=== PATIENT | female | born 1940 | race Caucasian/White ===

== ENCOUNTER 2018-05-21 17:34 | Emergency (ER) | payer MEDICARE, OTHER ==
[2018-05-21 18:26] LABS: ABS Basophils 0 10^3/ul (0-0.2); ABS Eosinophils 0.1 10^3/ul (0-0.6); ABS Lymphocytes 2.1 10^3/ul (1.0-4.8); ABS Monocytes 0.4 10^3/ul (0-0.8); ABS Neutrophils 3.5 10^3/ul (1.5-7.7); ABS Nucleated RBC 0 10^3/ul; Eosinophil % 2.2 % (0-6); Hematocrit 37 % (35-47); Hemoglobin 12.8 g/dl (12.0-16.0); Lymphocyte % 33.8 % (25-47); Mean Corpuscular HGB Conc 35 g/dl (31-36); Mean Corpuscular Hemoglobin 32 pg (27-31); Mean Corpuscular Volume 90 fL (80-97); Nucleated Red Blood Cells % 0.1; Platelet Count 243 10^3/ul (150-450); Red Blood Count 4.07 10^6/ul (4.00-5.40); Red Cell Distribution Width 13 % (10.5-15); White Blood Count 6.2 10^3/ul (3.5-10.8)
[2018-05-21 18:46] LABS: EGFR Non-African American 84.1 (>60)
[2018-05-21 19:09] VITALS: BP 123/79
--- NOTE | 2018-05-21 19:14 | ED ---
Abdominal Pain/Female - HPI Summary HPI Summary: Complains of right inguinal pain radiating down posterior right leg 1 hour. Pain resolved prior to arrival in ED. Patient was sent to ED by PCP for evaluation of right lower quadrant pain. Patient states she has had this pain 10 times over the past 2 years. Patient was evaluated 09/15/2015 for same, with negative CT abdomen and pelvis, negative hip and pelvis x-ray. Patient denies any new associated symptoms other than pain lasted a little longer today. Denies fever, cough, sore throat, CP, SOB, N/V/D, change in urinary BM. Medical history is DM. Abdominal/pelvic surgical history includes total hysterectomy. No anti-coag. Daily aspirin. - History of Current Complaint Chief Complaint: EDAbdPain Stated Complaint: RT FLANK PAIN Time Seen by Provider: 05/21/18 18:08 Hx Obtained From: Patient Onset/Duration: Sudden Onset Timing: Minutes Severity Initially: Severe Severity Currently: None Pain Intensity: 3 Pain Scale Used: 0-10 Numeric Location: Discrete At: RLQ Radiates: Yes Radiates to: Other Character: Sharp Aggravating Factor(s): Nothing Alleviating Factor(s): Nothing Associated Signs and Symptoms: Positive: Negative Allergies/Adverse Reactions: Allergies Allergy/AdvReac Type Severity Reaction Status Date / Time No Known Allergies Allergy Verified 05/21/18 18:00 Home Medications: Home Medications Cholecalciferol TAB* [Vitamin D TAB*] 400 unit PO DAILY 05/21/18 [History Confirmed 05/21/18] Cyanocobalamin TAB* [Vitamin B12 TAB*] 500 mcg PO DAILY 05/21/18 [History Confirmed 05/21/18] Insulin GLARGINE(*) [Lantus(*)] 55 units SUBCUT DAILY 05/21/18 [History Confirmed 05/21/18] Losartan TAB* [Cozaar TAB*] 100 mg PO DAILY 05/21/18 [History Confirmed 05/21/18 ] Montelukast Sodium TAB* [Singulair TAB*] 10 mg PO DAILY 05/21/18 [History Confirmed 05/21/18] Mv-Min/Iron/Folic/Calcium/Vitk [One-A-Day Women's Tablet] 1 tab PO DAILY [History Confirmed 05/21/18] [place]-3 Fatty Acids (Nf) [Fish Oil (NF)] 1,000 mg PO DAILY 05/21/18 [History Confirmed 05/21/18] Simvastatin (NF) [Zocor (NF)] 40 mg PO DAILY 05/21/18 [History Confirmed ] metFORMIN* [Glucophage 500 MG TAB *] 1,000 mg PO BID 05/21/18 [History Confirmed 05/21/18] PMH/Surg Hx/FS Hx/Imm Hx Endocrine/Hematology History: Denies: Hx Anticoagulant Therapy History: Denies: Hx Dialysis Musculoskeletal History: Denies: Hx Osteoporosis Neurological History: Denies: Hx CVA - Cancer History Hx Chemotherapy: No Hx Radiation Therapy: No - Surgical History Surgery Procedure, Year, and Place: back surgury 1988 =fusion Infectious Disease History: No Infectious Disease History: Denies: Traveled Outside the [place] in Last 30 Days - Social History Alcohol Use: Rare Substance Use Type: Reports: None Smoking Status (MU): Never Smoked Tobacco Review of Systems Constitutional: Negative Eyes: Negative ENT: Negative Cardiovascular: Negative Respiratory: Negative Positive: Abdominal Pain Genitourinary: Negative Musculoskeletal: Negative Skin: Negative Neurological: Negative Psychological: Normal All Other Systems Reviewed And Are Negative: Yes Physical Exam - Summary Physical Exam Summary: Patient pain resolved by time of exam. No pain with palpation of any quadrant of abdomen. Patient moves bilateral lower extremities freely, flexes and extends his hip without any pain. No pain with palpation of right inguinal area. Triage Information Reviewed: Yes Vital Signs On Initial Exam: Initial Vitals Temp Pulse Resp BP Pulse Ox 98.3 F 70 18 156/68 95 05/21/18 17:55 05/21/18 17:55 05/21/18 17:55 05/21/18 17:55 05/21/18 17:55 Vital Signs Reviewed: Yes Appearance: Positive: Well-Appearing Skin: Positive: Warm Head/Face: Positive: Normal Head/Face Inspection Eyes: Positive: Normal Neck: Positive: Supple Respiratory/Lung Sounds: Positive: Clear to Auscultation Cardiovascular: Positive: Normal Abdomen Description: Positive: Nontender Musculoskeletal: Positive: Normal Neurological: Positive: Normal Psychiatric: Positive: Normal AVPU Assessment: Alert - Dotty Coma Scale Best Eye Response: 4 - Spontaneous Best Motor Response: 6 - Obeys Commands Best Verbal Response: 5 - Oriented Coma Scale Total: 15 Diagnostics - Vital Signs Vital Signs Temp Pulse Resp BP Pulse Ox 07/03/18 19:01 71 20 92 05/21/18 19:00 70 23 123/79 93 05/21/18 18:30 66 15 139/75 95 05/21/18 17:55 98.3 F 70 18 156/68 95 - Laboratory Lab Results: Lab Results 05/21/18 05/21/18 05/21/18 Range/Units 18:17 18:17 18:17 WBC 6.2 (3.5-10.8) 10^3/ul RBC 4.07 (4.00-5.40) 10^6/ul Hgb 12.8 (12.0-16.0) g/dl Hct 37 (35-47) % MCV 90 (80-97) fL MCH 32 H (27-31) pg MCHC 35 (31-36) g/dl RDW 13 (10.5-15) % Plt Count 243 (150-450) 10^3/ul MPV 7.0 L (7.4-10.4) um3 Neut % (Auto) 57.2 (38-83) % Lymph % (Auto) 33.8 (25-47) % [place] % (Auto) 6.0 (0-7) % Eos % (Auto) 2.2 (0-6) % Baso % (Auto) 0.8 (0-2) % Absolute Neuts (auto) 3.5 (1.5-7.7) 10^3/ul Absolute Lymphs (auto) 2.1 (1.0-4.8) 10^3/ul Absolute Monos (auto) 0.4 (0-0.8) 10^3/ul Absolute Eos (auto) 0.1 (0-0.6) 10^3/ul Absolute Basos (auto) 0 (0-0.2) 10^3/ul Absolute Nucleated RBC 0 10^3/ul Nucleated RBC % 0.1 Sodium 136 (135-145) mmol/L Potassium 4.1 (3.5-5.0) mmol/L Chloride 103 (101-111) mmol/L Carbon Dioxide 21 L (22-32) mmol/L Anion Gap 12 H (2-11) mmol/L BUN 18 (6-24) mg/dL Creatinine 0.68 (0.51-0.95) mg/dL Est GFR ( Amer) 101.8 (>60) Est GFR (Non-Af Amer) 84.1 (>60) BUN/Creatinine Ratio 26.5 H (8-20) Glucose 200 H (70-100) mg/dL Lactic Acid 1.5 (0.5-2.0) mmol/L Calcium 10.1 (8.6-10.3) mg/dL Total Bilirubin 0.90 (0.2-1.0) mg/dL AST 28 (13-39) U/L ALT 27 (7-52) U/L Alkaline Phosphatase 61 (34-104) U/L C-Reactive Protein 3.05 (<8.01) mg/L Total Protein 7.8 (6.4-8.9) g/dL Albumin 4.5 (3.2-5.2) g/dL Globulin 3.3 (2-4) g/dL Albumin/Globulin Ratio 1.4 (1-3) Lipase 25 (11.0-82.0) U/L Result Diagrams: 05/21/18 18:17 05/21/18 18:17 Lab Statement: Any lab studies that have been ordered have been reviewed, and results considered in the medical decision making process. - EKG 1 Cardiac Rate: NL EKG Rhythm: Sinus Rhythm ST Segment: Non-Specific Ectopy: PVCs Abdominal Pain Fem Course/Dx - Course Course Of Treatment: Complains of right inguinal pain radiating down posterior right leg 1 hour. Pain resolved prior to arrival in ED. Patient was sent to ED by PCP for evaluation of right lower quadrant pain. Patient states she has had this pain 10 times over the past 2 years. Patient was evaluated 09/15/2015 for same, with negative CT abdomen and pelvis, negative hip and pelvis x-ray. Patient denies any new associated symptoms other than pain lasted a little longer today. Denies fever, cough, sore throat, CP, SOB, N/V/D, change in urinary BM. Medical history is DM. Abdominal/pelvic surgical history includes total hysterectomy. No anti-coag. Daily aspirin. Patient pain resolved by time of exam. No pain with palpation of any quadrant of abdomen. Patient moves bilateral lower extremities freely, flexes and extends his hip without any pain. No pain with palpation of right inguinal area. Vital signs within normal limits and stable. Labs unremarkable. Discussed patient with Dr. Perez who also felt that imaging was not necessary. Discharge home follow- up with primary care for possible radiculopathy - Diagnoses Provider Diagnoses: Right sided abdominal pain, Leg pain, right Discharge - Sign-Out/Discharge Documenting (check all that apply): Discharge/Admit/Transfer - Discharge Plan Condition: Stable Disposition: HOME Patient Education Materials: Lumbar Radiculopathy (ED) Referrals: Madelaine Zaragoza MD [Primary Care Provider] - Additional Instructions: Follow-up with primary care. Return to the ED for any new or worsening symptoms - Billing Disposition and Condition Condition: STABLE Disposition: Home
== END 2018-05-21 19:34 | disposition home or self-care (01) ==
LOC: ED 17:34
DX: R10.31 Right lower quadrant pain (principal); M79.604 Pain in right leg
CPT/HCPCS: 36415; 80053; 83605; 83690; 85025; 86140; 93005; 99282

== ENCOUNTER 2019-11-25 21:08 | Inpatient (IN) | payer MEDICARE, OTHER ==
--- NOTE | 2019-11-25 21:16 | ED ---
HPI Chest Pain - History of Current Complaint Chief Complaint: EDChestPainROMI Pain Intensity: 5 - Allergy/Home Medications Allergies/Adverse Reactions: Allergies Allergy/AdvReac Type Severity Reaction Status Date / Time amoxicillin Allergy Rash Verified 01/15/19 10:00 PMH/Surg Hx/FS Hx/Imm Hx Endocrine/Hematology History: Reports: Hx Diabetes - MEDICATED Denies: Hx Anticoagulant Therapy Cardiovascular History: Reports: Hx Hypertension - MEDICATED Denies: Hx Pacemaker/ICD History: Denies: Hx Dialysis, Hx Renal Disease Musculoskeletal History: Denies: Hx Osteoporosis Sensory History: Denies: Hx Hearing Aid Neurological History: Denies: Hx CVA Psychiatric History: Denies: Hx Panic Disorder - Cancer History Hx Chemotherapy: No Hx Radiation Therapy: No - Surgical History Surgery Procedure, Year, and Place: back surgury 1988 =fusion. HYSTERECTOMY Infectious Disease History: No Infectious Disease History: Denies: Traveled Outside the [place] in Last 30 Days - Social History Alcohol Use: Rare Substance Use Type: Reports: None Smoking Status (MU): Never Smoked Tobacco Physical Exam Vital Signs On Initial Exam: Initial Vitals Temp Pulse Resp BP Pulse Ox 98.8 F 77 20 170/90 95 11/25/19 21:08 11/25/19 21:08 11/25/19 21:08 11/25/19 21:08 11/25/19 21:08 Diagnostics - Vital Signs Vital Signs Temp Pulse Resp BP Pulse Ox 11/25/19 21:08 98.8 F 77 20 170/90 95 - Laboratory Lab Statement: Any lab studies that have been ordered have been reviewed, and results considered in the medical decision making process. - EKG 2115 Cardiac Rate: NL EKG Rhythm: Sinus Rhythm Summary of EKG Findings: NSR at 74 BPM, P waves, QRS complex, and T waves are within normal limits, T waves and intervals are normal, no ischemic changes. This is a normal EKG. This EKG was reviewed and interpreted by the ED physician. Discharge ED - Discharge Plan Referrals: Madelaine Zaragoza MD [Primary Care Provider] - - Attestation Statements Document Initiated by Scribe: Yes
--- OUTSIDE RECORDS SUMMARY | 2019-11-25 21:16 | XMS REPORT | Continuity of Care Document ---
:1940 External Reference #:[id number] Author Name Madelaine Reed MD Address [address] [place] [id number] Problems Active Problems Provider Date Type 2 diabetes mellitus Onset: 05/30/2006 Pure hypercholesterolemia Onset: 05/30/2006 Benign essential hypertension Madelaine Reed MD Onset: 09/28/2010 Type II diabetes mellitus uncontrolled Madelaine Reed MD Onset: 2011 Type II diabetes mellitus uncontrolled Madelaine Reed MD Onset: 2014 Essential hypertension Madelaine Reed MD Onset: 08/17/2015 Mixed hyperlipidemia Madelaine Reed MD Onset: 09/03/2018 Social History Type Date Description Comments Sex Unknown Tobacco Use Start: Unknown End: Unknown Former Cigarette Smoker Tobacco Use Start: Unknown End: Unknown Patient is a former smoker Smoking Status Reviewed: 07/15/19 Patient is a former smoker Allergies, Adverse Reactions, Alerts Active Allergies Reaction Severity Comments Date Amoxicillin Codeine Medications Active Medications SIG Qnty Indications Ordering Date Provider [facility] [place] for lantus inj QS E11.65 Madelaine Reed 10/27/2019 32G X 4 mm MD [facility] Misc Slow-Mag Madelaine Reed 07/17/2019 71.5-119mg MD [facility] Tablets DR Glucometer dx: DM 2 1units Madelaine Reed 04/15/2019 MD [facility] Lancets Micro Thin for fsbg twice a 100units Madelaine Reed 04/15/2019 33G day MD [facility] Thin 33G [facility] [place] Blood Glucose Test test twice a day 100units E11.65 Madelaine Reed 04/11 MD [facility] Strips Gabapentin take 1-3 30caps M54.31 [facility] 03/04/2019 100mg capsules at M, Capsules bedtime Magnesium Gluconate 1 po qhs 30tabs G47.62 [facility] 03/04/2019 MD [facility] 500mg Tablets Janumet XR Take One Tablet 60tabs E11.65 [facility] 06/18/2018 50-1000mg By Mouth Twice A M, Tablets ER 24HR Day Shingrix 2 shot series 2units Z00.01 [facility] 03/13/2018 50mcg MD [facility] Suspension Rec Montelukast Sodium Take One Tablet 30tabs J30.1 [facility] 2016 10mg By Mouth Every M, Tablets Day Losartan Potassium Take One Tablet 30tabs I10 [facility] 12/19/2016 By Mouth Every M, 100mg Tablets Day Lantus Solostar Inject 50u Units 15units E11.65 Ramone Gonzalez PA 2015 Under The Skin 100Unit/ML Solution Every Day Pen-Inject Vitamin D-3 one qd E55.9 [facility], 02/13/2013 1000Unit Elaine, [employer] Tablets Fish Oil one qd E78.2 [facility], 02/13/2013 1000mg Elaine, [employer] Capsules Simvastatin take one tablet 30tabs E78.2 [facility] 06/24/2012 40mg by mouth at [facility], Tablets bedtime Vitamin B-12 1 po qd D51.9 [facility] 08/11/2009 1000mcg MD [facility] Tablets Claritin 1 po qd prn 90tabs J30.1 [facility] 07/09/2006 10mg Tablets MD [facility] Multivitamins W/ Iron 1 po qd 90tabs [facility] 10/25/2005 MD [facility] Tablets Medications Administered in Office Medication SIG Qnty Indications Ordering Provider Date Phenergan(Promethazine Hci)Up Madelaine Reed MD 05/04/2010 To 50 MG Injection Immunizations CPT Code Status Date Vaccine Lot # [id number] Given 09/01/2019 Influenza Vac, Quadrivalent, Split, 0.5mL Dosage, [id number] Im Use 96411 Given 09/03/2018 Influenza Vac, Quadrivalent, Split, 0.5mL Dosage, [id number] Im Use 14326 Given 07/24/2017 Influenza Vac, Quadrivalent, Split, 0.5mL Dosage, [id number] Im Use 25267 Given 08/16/2016 Influenza Vac, Quadrivalent, Split, 0.5mL Dosage, [id number] Im Use 35017 Given 12/14/2015 Pneumococcal 23 Immunization Adult Or [id number] Immunosuppressed Patient 51878 Given 08/17/2015 Influenza Vac, Quadrivalent, Split, 0.5mL Dosage, [id number] Im Use 04347 Given 11/27/2014 Prevnar 13 Pneumococal Conjugate Vaccine [id number] Q2038 Given 08/18/2014 Fluzone Trivalent Immunization [id number] Q2038 Given 08/12/2013 Fluzone Trivalent Immunization [id number] Q2038 Given 08/16/2012 Fluzone Trivalent Immunization [id number] 98631 Given 07/05/2012 Zoster (Zostavax) [id number] Q2038 Given 09/11/2011 Fluzone Trivalent Immunization [id number] 07867 Given 09/26/2010 Afluria Or Fluvirin Flu Vac Intramuscular [id number] 92238 Given 08/11/2009 Afluria Or Fluvirin Flu Vac Intramuscular [id number] 56904 Given 07/07/2009 Tdap (Adacel) Ages 7 And Above Only [id number] 60602 Given 10/12/2008 Afluria Or Fluvirin Flu Vac Intramuscular [id number] 08919 Given 09/18/2007 Afluria Or Fluvirin Flu Vac Intramuscular 01910 Given 09/18/2007 Afluria Or Fluvirin Flu Vac Intramuscular [id number] 53126 Given 09/19/2006 Afluria Or Fluvirin Flu Vac Intramuscular [id number] 54840 Given 08/23/2005 Afluria Or Fluvirin Flu Vac Intramuscular [id number] 90585 Given 09/14/2004 Afluria Or Fluvirin Flu Vac Intramuscular 63633 Given 09/28/2003 Pneumococcal 23 Immunization Adult Or Immunosuppressed Patient 71840 Given 11/04/2001 Afluria Or Fluvirin Flu Vac Intramuscular Vital Signs Date Vital Result Comment 10/27/2019 1:37pm Body Temperature 98.6 F Weight 160.00 lb Heart Rate 72 /min BP Systolic 136 mmHg BP Diastolic 70 mmHg Height 67 inches 5'7" BMI (Body Mass Index) 25.1 kg/m2 07/15/2019 7:59am Weight 159.00 lb Heart Rate 72 /min BP Systolic 132 mmHg BP Diastolic 60 mmHg Height 67 inches 5'7" BMI (Body Mass Index) 24.9 kg/m2 Results Test Acquired Date Facility Test Result H/L Range Note CBC with Auto Diff-fcmg 10/27/2019 [facility] WBC 7.4 K/uL 4.1-11.0 1 RBC 3.98 M/uL Low 4.00-5.40 2 Hemoglobin 12.8 gm/dL 12.0-16.0 3 Hematocrit 36.5 % 36.0-47.0 4 MCV 91.5 fL 80.0-95.0 5 MCH 32.1 pg High 27.0-32.0 6 MCHC 35.1 g/dL 32.0-36.0 7 RDW 13.3 % 10.5-14.5 8 PLT Count 253 K/ul 150-400 9 MPV 7.4 FL 7.1-10.7 Neutrophil 66.0 % 35.0-75.0 10 Lymphocyte 24.6 % 16.0-52.0 11 Monocyte 7.0 % 0.0-8.0 12 Eosinophil 1.7 % 0.0-5.0 Basophil 0.7 % 0.0-4.0 Abs Neutrophils 4.9 K/uL 1.8-7.7 13 Abs Lymphocytes 1.8 K/uL 1.2-4.8 14 Abs Monocytes 0.5 K/uL 0.0-0.8 15 Abs Eosinophils 0.1 K/uL 0.0-0.5 16 Abs Basophils 0.0 K/uL 0.0-0.2 17 Iron Panel 10/27/2019 [facility] Iron, Total 61 g/dL 50-170 Transferrin 245.0 mg/dL 203.0-362.0 Tibc (calc) 343 g/dL 261-478 % Iron Saturation 17.8 % 13.0-45.0 Hemoglobin A1c 07/15/2019 [facility] Hemoglobin A1c 7.3 % High 4.1-5.9 18 Estimated Average Glucose Calc 163 mg/dL High 71-140 Laboratory test finding 07/15/2019 [facility] Magnesium 1.3 mg/dL Low 1.5- 2.7 Vitamin B12 413 pg/mL 180-914 Vitamin D 25 Hydroxy 42 ng/mL 30-100 19 Basic (BMP) 07/15/2019 [facility] Sodium 142 mmol/L 135-146 20 Potassium 4.2 mmol/L 3.5-5.2 Chloride# 104 mmol/L 97-110 21 Carbon Dioxide 27 mmol/L 24-34 Glucose 99 mg/dL 70-105 BUN 18 mg/dL 6-26 Creatinine 0.7 mg/dL 0.5-1.4 Calcium 9.8 mg/dL 8.5-10.5 22 Female Egfr 84 >60 23 Male Egfr 92 >60 24 Anion Gap 11 mmol/L 5-15 25 Lipid Treatment 07/15/2019 [facility] Cholesterol 249 mg/dL High 50-199 Triglycerides 153 mg/dL 30-200 HDL 40 mg/dL 35-85 26 Chol/ HDL Ratio 6.2 ratio High 3.7-5.6 VLDL 31 mg/dL High 2-29 LDL (Calc) 179 mg/dL High 20-99 27 Alt 24 U/L 3-42 Ast 26 U/L 8-42 1 Updated Reference Range 09/2019 2 Updated Reference Range 09/2019 3 Updated Reference Range 09/2019 4 Updated Reference Range 09/2019 5 Updated Reference Range 09/2019 6 Updated Reference Range 09/2019 7 Updated Reference range 09/2019 8 Updated Reference range 09/2019 9 Updated Reference Range 09/2019 10 Updated Reference Range 09/2019 11 Updated Reference Range 09/2019 12 Updated Reference Range 09/2019 13 Updated Reference Range 09/2019 14 Updated Reference Range 09/2019 15 Updated Reference Range 09/2019 16 Updated Reference Range 09/2019 17 Updated Reference Range 09/2019 18 This sample is drawn by:ESTELLA. 19 Clinical Guidelines for recommended serum 25(OH)Vitamin D Deficient at less than 20 ng/mL Insufficient at 20 to <30 ng/mL Sufficient at 30-100 ng/mL Toxicity at greater than 100 ng/mL 20 Updated reference range on new analyzer 21 Updated reference range on new analyzer 22 Updated reference range 03-19-2019 23 Concerning GFR Guidelines for Americans: Normal function or mild renal disease, if clinically at risk: >/= 60 mL/min Moderately decreased: 30-59 Severely decreased: 15-29 Renal failure: <15 There is reduced accuracy above 60ml/min/1.73 m squared, but the numeric value may be clinically useful in the near 60 range 24 Concerning GFR Guidelines: Normal function or mild renal disease, if clinically at risk: >/= 60 mL/min Moderately decreased: 30-59 Severely decreased: 15-29 Renal failure: <15 There is reduced accuracy above 60ml/min/1.73 m squared, but the numeric value may be clinically useful in the near 60 range Glomerular Filtration Rate (GFR) is estimated based on the CKD-EPI equation, which assumes a steady state for creatinine as recommended by the National Kidney Disease Education Program in conjunction with the National Institutes of Health and the National Kidney Foundation. Clinical conditions in which it may be necessary to measure GFR by using clearance methods include extremes of age and body size, severe malnutrition or obesity, diseases of skeletal muscle, paraplegia or quadriplegia, vegetarian diet, rapidly changing kidney function, and calculation of the dose of potentially toxic drugs that are excreted by the kidneys. 25 Updated Reference Range -2017 26 Per NCEP ATP III Guidelines: Results lower than 40 mg/dL are suggestive of increased risk for coronary artery disease. Results > or = to 60 mg/dL are considered a negative risk factor. 27 Per NCEP ATP III Guidelines: Normal Population <130 Patients with medical conditions: CHD/DM Optimal: <100 Borderline high: 130-159 High: 160-189 Very high: >189 Procedures Date Code Description Status 03/26/2019 [id number] Mammogram Completed 10/22/2017 [id number] Bone Mineral Density Test Completed 10/22/2017 [id number] Mammogram Completed 09/20/2016 [id number] Mammogram Completed 09/21/2015 [id number] Mammogram Completed 11/30/2014 [id number] Bone Mineral Density Test Completed 09/18/2014 [id number] Mammogram Completed 09/05/2013 [id number] Mammogram Completed 07/18/2012 [id number] Mammogram Completed 06/16/2011 [id number] Mammogram Completed 05/16/2011 [id number] Colonoscopy Completed 11/17/2009 [id number] Bone Mineral Density Test Completed 11/17/2009 [id number] Mammogram Completed Medical Devices Description No Information Available Encounters Type Date Location Provider Dx Diagnosis Office Visit 07/15/2019 Madelaine Valadez E11.65 Type 2 diabetes 8:00a MMD mellitus with hyperglycemia E83.42 Hypomagnesemia E78.2 Mixed hyperlipidemia R25.1 Tremor, unspecified I10 Essential (primary) hypertension J30.1 Allergic rhinitis due to pollen G47.62 Sleep related leg cramps E55.9 Vitamin D deficiency, unspecified D51.9 Vitamin B12 deficiency anemia, unspecified R10.31 RIGHT lower quadrant pain M54.31 Sciatica, RIGHT side Assessments Date Code Description Provider 10/27/2019 K57.32 Diverticulitis of large intestine without Madelaine Reed MD perforation or abscess without bleeding 10/27/2019 E11.65 Type 2 diabetes mellitus with hyperglycemia Madelaine Reed MD 10/27/2019 Z68.25 Body mass index (BMI) 25.0-25.9, adult Madelaine Reed MD 10/27/2019 K57.32 Dvtrcli of lg int w/o perforation or abscess [facility] w/o bleeding 09/01/2019 Z23 Encounter for immunization Madelaine Reed MD 09/01/2019 Z23 Encounter for immunization Nurses Schedule [facility] 07/15/2019 E11.65 Type 2 diabetes mellitus with hyperglycemia Madelaine Reed MD 07/15/2019 E83.42 Hypomagnesemia Madelaine Reed MD 07/15/2019 E55.9 Vitamin D deficiency, unspecified [facility] 07/15/2019 E78.2 Mixed hyperlipidemia Madelaine Reed MD 07/15/2019 R25.1 Tremor, unspecified Mdaelaine Reed MD 07/15/2019 I10 Essential (primary) hypertension Madelaine Reed MD 07/15/2019 J30.1 Allergic rhinitis due to pollen Madelaine Reed MD 07/15/2019 G47.62 Sleep related leg cramps Madelaine Reed MD 07/15/2019 E55.9 Vitamin D deficiency, gabeified Madelaine Reed MD 07/15/2019 D51.9 Vitamin B12 deficiency anemia, unspecified Madelaine Reed MD 07/15/2019 R10.31 RIGHT lower quadrant pain Madelaine Reed MD 07/15/2019 M54.31 Sciatica, RIGHT side Madelaine Reed MD 07/15/2019 E11.65 Type 2 diabetes mellitus with hyperglycemia [facility] 07/15/2019 I10 Essential (primary) hypertension [facility] Plan of Treatment Future Appointment(s):11/24/2019 8:30 am - Madelaine Reed MD at [id number] - Madelaine Reed MDK57.32 Diverticulitis of large intestine without perforation or abscess without bleedingReferral:Rosaura Johnson MD,Follow up :give fiber diet infoE11.65 Type 2 diabetes mellitus with hyperglycemiaNew Medication:[facility] [place] 32 G X 4 mm - for lantus injZ68.25 Body mass index (BMI) 25.0-25.9, adult Functional Status Description No Information Available Mental Status Description No Information Available Referrals Refer to Dr Reason for Referral Status Appt Date Rosaura Johnson MD Diverticulitis of large intestine without Created perforation or abscess without bleeding Comments : extensive referrred to GI she prefers [facility] NOT UNTIL AFTER NOV 19 [address] [place], [place] [id number] [phone]
--- OUTSIDE RECORDS SUMMARY | 2019-11-25 21:16 | XMS REPORT | Continuity of Care Document ---
:1940 External Reference #:[id number] Author Name Arnol Aguiar M.D. Address [address] [place] [address] Care Team Providers Name Role Phone Madelaine Reed M.D. - Family Care Team Information Clerk General [phone] Medicine Problems Active Problems Provider Date Type 2 diabetes mellitus Onset: Note: 2001 Essential hypertension Onset: Hypercholesterolemia Onset: Seasonal allergy Onset: Combined form of senile cataract Arnol Aguiar M.D. 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 Onset: 02/17/2016 Malignant neoplasm of skin of eyelid Onset: Note: Not sure what type Type 2 diabetes mellitus with mild Arnol Aguiar M.D. Onset: 09/29/2019 nonproliferative diabetic retinopathy without macular edema, bilateral Social History Type Date Description Comments Sex Unknown ETOH Use Occasionally consumes wine Tobacco Use Start: Unknown Patient has never smoked Smoking Status Reviewed: 09/29/19 Patient has never smoked Allergies, Adverse Reactions, Alerts Active Allergies Reaction Severity Comments Date Codeine 02/16/2015 Amoxicillin 02/16/2015 Medications Active Medications SIG Qnty Indications Ordering Provider Date Simvastatin Madelaine Reed 40mg Tablets M.D. Lantus Solostar Madelaine Reed 55Unit/ML M.D. Solution Pen-Inject Multi Vitamin Daily Unknown Tablets Fish Oil 1 by mouth every Unknown 1000mg Capsules day Vitamin D every day Unknown 1000Unit Tablets Vitamin B12 Unknown 100mcg Tablets Losartan Potassium Unknown 100mg Tablets Montelukast Sodium Unknown 10mg Tablets Janumet XR Madelaine Reed 50-1000mg M.D. Tablets ER 24HR Immunizations Description No Information Available Vital Signs Description No Information Available Results Description No Information Available Procedures Description No Information Available Medical Devices Description No Information Available Encounters Description No Information Available Assessments Date Code Description Provider 09/29/2019 E11.3293 Type 2 diabetes mellitus with mild Arnol Aguiar M.D. nonproliferative diabetic retinopathy without macular edema, bilateral 09/29/2019 H25.813 Combined forms of age-related cataract, Arnol Aguiar M.D. 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 right eye Plan of Treatment 09/29/2019 - Arnol Aguiar M.D.E11.3293 Type 2 diabetes mellitus with mild nonproliferative diabetic retinopathy without macular edema, bilateralComments: Smoking can increase the risk of developing or worsening any eye related disease , as well as affect your overall health. If you are a smoker, we strongly recommend that you quit.If you are not a smoker, we strongly recommend that you do not start. I can detect diabetic changes in your eyes. Proper control of your diabetes is important for the health of your eyes. It is important that you keep all of your follow up appointments. Dr. Aguiar has sent a report to your primary care doctor, letting them know the current status of your retina.Follow up:6 Month Follow Up DFE/IOP OCT MAC Diagnostic Refraction You can expect to have your eyes dilated at your next visit. If Dr. Aguiar orders any additional testing, it may require extra time. We recommend that you bring sunglasses, as dilation drops often make you light sensitive until they wear off. We always recommend you bring someone to drive you home if you are uncomfortable driving with your eyes dilated. If you have any questions before your next visit, feel free to call our office at .H25.813 Combined forms of age-related cataract, bilateralComments:You have been diagnosed with cataracts. If you are happy with your vision as it is now, then we willsee you at your next scheduled appointment. 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
[2019-11-25] MEDS ORDERED: Albuterol/Ipratropium NEB.SOL* Albuterol 2.5 MG/Ipratropium 0.5 MG 3 ML INH ONE (21:24)
--- NOTE | 2019-11-25 21:26 | ED ---
HPI Chest Pain - HPI Summary HPI Summary: 79 year old female presents with chest pain today. She states that she was taking her nightly pills and she ended up getting one of the pills stuck in her throat. States she started to cough and then developed the chest pain that radiated to her jaw. She states it felt like a tightness. she states it was worst when she took a deep breath. EMS gave her 02/19/25 of aspirin and nitroglycerin. She states that she chest pain resolved 15 minutes later. She states that she currently does have right-sided jaw pain and she feels wheezy. She denies any history asthma COPD. She is nonsmoker. She states she's continues to cough. She sees had a runny nose for the past couple days. Denies any fevers. No abdominal pain. She denies any vomiting or nausea. She states she had a normal cardiac work up two years ago by dr talbot. she denies any family history of cardiac disease. She is diabetic and has history of HTN and high cholesterol. - History of Current Complaint Chief Complaint: EDChestPainROMI Time Seen by Provider: 11/25/19 21:16 Pain Intensity: 5 - Allergy/Home Medications Allergies/Adverse Reactions: Allergies Allergy/AdvReac Type Severity Reaction Status Date / Time amoxicillin Allergy Rash Verified 01/15/19 10:00 Home Medications: Home Medications Multivitamins/Minerals TAB* [Thera M Plus TAB*] 1 tab PO DAILY 11/25/19 [ History Confirmed 11/25/19] Sitaglip/Metform XR50/1000(NR) [Janumet Xr (NR)] 1 tab PO BID 11/25/19 [ History Confirmed 11/25/19] PMH/Surg Hx/FS Hx/Imm Hx Endocrine/Hematology History: Reports: Hx Diabetes - MEDICATED Denies: Hx Anticoagulant Therapy Cardiovascular History: Reports: Hx Hypertension - MEDICATED Denies: Hx Pacemaker/ICD History: Denies: Hx Dialysis, Hx Renal Disease Musculoskeletal History: Denies: Hx Osteoporosis Sensory History: Denies: Hx Hearing Aid Neurological History: Denies: Hx CVA Psychiatric History: Denies: Hx Panic Disorder - Cancer History Hx Chemotherapy: No Hx Radiation Therapy: No - Surgical History Surgery Procedure, Year, and Place: back surgury 1988 =fusion. HYSTERECTOMY Infectious Disease History: No Infectious Disease History: Denies: Traveled Outside the [place] in Last 30 Days - Family History Known Family History: Negative: Cardiac Disease - Social History Alcohol Use: Rare Substance Use Type: Reports: None Smoking Status (MU): Never Smoked Tobacco Review of Systems Negative: Fever Positive: Other - right side jaw pain Positive: Chest Pain - resolved Positive: Shortness Of Breath, Cough Positive: Nausea. Negative: Abdominal Pain, Vomiting All Other Systems Reviewed And Are Negative: Yes Physical Exam Triage Information Reviewed: Yes Vital Signs On Initial Exam: Initial Vitals Temp Pulse Resp BP Pulse Ox 98.8 F 77 20 170/90 95 11/25/19 21:08 11/25/19 21:08 11/25/19 21:08 11/25/19 21:08 11/25/19 21:08 Vital Signs Reviewed: Yes Appearance: Positive: Well-Appearing Skin: Positive: Warm, Dry Head/Face: Positive: Normal Head/Face Inspection Eyes: Positive: Normal, EOMI, MELISSA, Conjunctiva Clear ENT: Positive: Pharynx normal, TMs normal Respiratory/Lung Sounds: Positive: Breath Sounds Present, Wheezes Cardiovascular: Positive: Normal, RRR Abdomen Description: Positive: Nontender, Soft Bowel Sounds: Positive: Present Musculoskeletal: Positive: Normal Neurological: Positive: Normal Psychiatric: Positive: Normal Procedures - Sedation Patient Received Moderate/Deep Sedation with Procedure: No Diagnostics - Vital Signs Vital Signs Temp Pulse Resp BP Pulse Ox 11/25/19 21:17 80 17 97 11/25/19 21:13 76 18 170/90 94 11/25/19 21:08 98.8 F 77 20 170/90 95 - Laboratory Lab Results: Lab Results 11/25/19 Range/Units 21:20 Influenza A (Rapid) Pending Influenza B (Rapid) Pending Result Diagrams: 11/25/19 21:27 11/25/19 21:27 Lab Statement: Any lab studies that have been ordered have been reviewed, and results considered in the medical decision making process. - Radiology chest Radiology Interpretation Completed By: ED Physician Summary of Radiographic Findings: no active disease - CT cta CT Interpretation Completed By: ED Physician Summary of CT Findings: IMPRESSION: 1. No pulmonary embolus. No dissection or aneurysm in the chest. 2. No consolidation, effusion or edema. 3. Mild bronchial wall thickening. This may represent underlying inflammation or infection, or be chronic. - EKG 2115 Cardiac Rate: NL EKG Rhythm: Sinus Rhythm EKG Comparison: No Significant Change Summary of EKG Findings: NSR at 74 BPM, P waves, QRS complex, and T waves are within normal limits, T waves and intervals are normal, no ischemic changes. Re-Evaluation - Re-Evaluation First Eval Re-Evaluation Time: 22:10 Comment: no change with breathing treatment, no chest pain. Second Eval Re-Evaluation Time: 23:51 Comment: still no chest pain Chest Pain Course/Dx - Course Course Of Treatment: 79-year-old male presents with chest today. It started after she got a pill stuck in her throat. She states that she is short of breath. Chest pain was relieved with nitroglycerin and aspirin. Denies any chest pink. Does have right jaw pain and feels wheezy and had a cough. No fevers. Has no significant cardiac history. Is diabetic. On exam wheezes noted. Pharynx normal. EKG shows sinus rhythm. wbc normal. bnp normal. d- dimer elevated. chest xray normal. will get CTA. troponin 0.09. heart score 4. CTA shows bronchial wall thickening. discussed with dr garcias who agrees to admit for further cardiac workup. - Chest Pain Differential Diagnosis/HQI/PQRI: Angina, CHF, Lower Respiratory Infection - Diagnoses Provider Diagnoses: Chest pain, Cough, Elevated troponin Discharge ED - Sign-Out/Discharge Documenting (check all that apply): Patient Departure - Discharge Plan Condition: Stable Disposition: ADMITTED TO [facility] - Billing Disposition and Condition Condition: STABLE Disposition: Admitted to [facility]
[2019-11-25 21:33] LABS: Hematocrit 36 % (35-47); Hemoglobin 12.9 g/dL (12.0-16.0); Mean Corpuscular HGB Conc 36 g/dL (31-36); Mean Corpuscular Hemoglobin 33 pg (27-31); Mean Corpuscular Volume 91 fL (80-97); Mean Platelet Volume 7.1 fL (7.4-10.4); Platelet Count 218 10^3/uL (150-450); Red Blood Count 3.95 10^6 /uL (3.70-4.87); Red Cell Distribution Width 13 % (10-15); White Blood Count 7.1 10^3/uL (3.5-10.8)
[2019-11-25 21:35] LABS: ABS Eosinophils 0.1 10^3/ul (0-0.6); ABS Lymphocytes 1.6 10^3/ul (1.0-4.8); ABS Monocytes 0.5 10^3/ul (0-0.8); ABS Neutrophils 4.6 10^3/ul (1.5-7.7); Eosinophil % 1.1 %; Lymphocyte % 23.6 %
[2019-11-25 21:43] LABS: Influenza A Molecular NEGATIVE (Negative); Influenza B Molecular NEGATIVE (Negative)
[2019-11-25 21:50] LABS: ALT 24 U/L (7-52); AST 26 U/L (13-39); Albumin 4.5 g/dL (3.2-5.2); Albumin/Globulin Ratio 1.4 (1-3); Alkaline Phosphatase 72 U/L (34-104); Anion Gap 10 mmol/L (2-11); BUN/Creatinine Ratio 24.7 (8-20); Blood Urea Nitrogen 18 mg/dL (6-24); C Reactive Protein 1.56 mg/L (<8.01); CO2 Carbon Dioxide 25 mmol/L (22-32); Chloride 104 mmol/L (101-111); EGFR African American 93.5 (>60); EGFR Non-African American 77.3 (>60); Globulin 3.2 g/dL (2-4); Glucose 192 mg/dL (70-100); Potassium 4.3 mmol/L (3.5-5.0); Sodium 139 mmol/L (135-145); Total Protein 7.7 g/dL (6.4-8.9)
[2019-11-25 22:11] LABS: Troponin I 0.09 ng/mL (<0.03)
[2019-11-25] MEDS ORDERED: Iodixanol* (CONTRAST) 320 MG/ML 100 ML SDV IV ONE (22:16)
[2019-11-26 00:24] LABS: Cholesterol 141 mg/dL; HDL Cholesterol 33.5 mg/dL; LDL Cholesterol 67 mg/dL; Triglycerides 202 mg/dL
[2019-11-26] MEDS ORDERED: Acetaminophen TAB* 325 MG PO PRN (00:37)
[2019-11-26] MEDS ORDERED: Dextrose 50% VIAL 50 ml IV PUSH PRN (00:37)
[2019-11-26] MEDS ORDERED: Albuterol HFA INHALER* 8 gm MDI INH PRN (00:38)
[2019-11-26] MEDS ORDERED: Benzonatate CAP* 100 MG PO PRN (00:38)
[2019-11-26] MEDS ORDERED: Melatonin 3 MG TAB PO PRN (00:39)
[2019-11-26] MEDS ORDERED: Benzocaine/Menthol LOZ* 1 LOZENGE PO PRN (00:39)
[2019-11-26 00:41] LABS: Troponin I 0.37 ng/mL (<0.03)
[2019-11-26] MEDS ORDERED: Enoxaparin(*) 80 MG/0.8 ML SYR SUBCUT ONE (00:52)
[2019-11-26] MEDS ORDERED: Enoxaparin(*) 40 MG/0.4 ML SYR SUBCUT SCH (01:00)
[2019-11-26] MEDS ORDERED: Nitroglycerin TAB 0.4 MG* 0.4 MG TAB SL PRN (01:19)
[2019-11-26] MEDS: Metoprolol Tartrate TAB* 25 MG PO SCH ×2 (02:26→09:14)
--- NOTE | 2019-11-26 03:52 | HP ---
CC: Dr. Madelaine Reed HISTORY AND PHYSICAL: DATE OF ADMISSION: 11/26/19 PRIMARY CARE PROVIDER: Dr. Madelaine Reed. [employer]OP[employer]OFT ADMINISTRATOR: Arnol Mendoza, the patient's . CODE STATUS: Full. CHIEF COMPLAINT: Chest pain, cough, and wheezing. HISTORY OF PRESENT ILLNESS: A 79-year-old female with past medical history of well- controlled insulin-dependent diabetes, hypertension, hyperlipidemia, who presents to the emergency room today with complaint of atypical chest pain. The patient reports that she was in her usual state of health until late this afternoon when she was trying to take her medications, she felt that a pill got stuck and she tried to drink water and eat bread and had an episode of coughing and aspiration during this event. Afterwards, she had significant chest pain that radiated to her jaw, associated with wheezing. Her symptoms subsided after about an hour but the jaw pain remained and thus she decided to present to the emergency room. She also notes that she has had mild upper respiratory symptoms for the last 2 days with runny nose, but no sore throat, no fevers or chills and no myalgias. She denies camille chest pain now, although continues to have right-sided jaw pain that radiates towards her ear, dull and achy, but no palpitations or other associated symptoms. She has no nausea, no diaphoresis. EMS gave the patient 325mg aspirin en route. She also took her 81 mg baby aspirin which she takes daily, earlier today. In the emergency room, blood pressure is 156/68, her EKG shows sinus rhythm with a heart rate of 70 possibly 1mm STD in V3-V4, temperature is 98.2, 95% on room air. Labs show mildly elevated lactic acid at 2.4 and her troponin that was mildly elevated at 0.09. Flu was negative. A CTA was done, which showed no evidence of PE. Given her elevated troponin, heart score of 4 and risk factors pt is evaluated by the hospitalist team for admission. PAST MEDICAL HISTORY: 1. Insulin-dependent diabetes. 2. Hypertension. 3. Hyperlipidemia. 4. History of diverticulitis. PAST SURGICAL HISTORY: 1. Laminectomy greater than 20 years ago. 2. Hysterectomy. MEDICATIONS: 1. Multivitamin 1 tab daily. 2. [place]-3 fatty acids 1000 mg p.o. daily. 3. Sitagliptin/metformin one tab p.o. b.i.d. 4. Cholecalciferol 400 units p.o. daily. 5. Cyanocobalamin 500 mcg p.o. daily. 6. Insulin glargine 55 units subcutaneous q.p.m. 7. Losartan 100 mg p.o. daily. 8. Montelukast 10 mg p.o. daily. 9. Simvastatin 40 mg p.o. daily. FAMILY HISTORY: Her father, positive for diabetes. Her mother is from lung cancer. Her brother had heart disease in his late 70s. SOCIAL HISTORY: The patient is a retired high school agriculture teacher. She is a lifetime nonsmoker. Scant drinker with less than 1 drink per month and a lifetime non- illicit user. She lives with her , who is retired, at home and ambulates unassisted and completes all IADLs without assistance. REVIEW OF SYSTEMS: Constitutional: Negative for fevers, chills, or malaise. Positive for mild upper respiratory symptoms in the last 2 days. HEENT: Negative for headaches, vision changes, sore throat. Cardiovascular: Positive for atypical chest pain, noted as right jaw pain, but negative for palpitations or orthopnea. Respiratory: Negative for shortness of breath. Positive for cough and wheezing. Negative for pleuritic chest pain. GI: Negative for nausea , vomiting, diarrhea, or abdominal pain. : Negative for dysuria, hematuria. Musculoskeletal: Negative for myalgias, arthralgias, or weakness. Skin: Negative for rashes or lesions. Neurologic: Negative for focal weakness or numbness. Psychiatric: Negative for depression, anxiety. Endocrine: Negative for polyuria, polydipsia. Heme: Negative for easy bruising, bleeding, or lymphadenopathy. Allergy: Negative for seasonal frequent infections. PHYSICAL EXAMINATION GENERAL APPEARANCE: This is a very well-appearing woman, in no acute distress, who has mild audible wheeze. Pleasant and conversant. No respiratory distress. A and O x4 VITAL SIGNS: At the time of physical exam, heart rate is 77, respiratory rate is 17, oxygen is 92% on room air, blood pressure is 137/72. HEENT: Pupils are equal and reactive. Sclerae are anicteric. Extraocular muscles are intact. Oropharynx shows moist mucous membranes. No abnormal lesions. NECK: Supple with no supraclavicular or cervical lymphadenopathy. RESPIRATORY: Notable for bilateral expiratory wheeze. No rhonchi. No crackles or focal consolidations and no evidence of increased work of breathing. CARDIAC: Regular rate and rhythm with no murmurs, rubs, or gallops. GI: Belly is soft, nontender, nondistended with normoactive bowel sounds. MUSCULOSKELETAL: Moves all 4 limbs spontaneously. Bilateral lower extremities are warm and well perfused without edema. NEURO: Cranial nerves II through XII are intact with no focal neurologic deficits. The patient is A and O x4. SKIN: Without rashes or lesions. DIAGNOSTIC STUDIES/LAB DATA: White blood cell count 7.1, hemoglobin 12.9, hematocrit 36, platelets 218. BMP: Sodium of 139, potassium 4.3, chloride 104 , carbon dioxide 25, anion gap 10, BUN 18, creatinine 0.73, glucose 192, lactic acid 2.4. Troponin 0.09. AST 26, ALT 24, alk phos 72. LDL cholesterol 67. Hemoglobin A1c is pending. Imaging includes chest, thorax CTA. No pulmonary embolism, no dissecting aneurysm in the chest. No consolidation, effusion, or edema. Mild bronchial wall thickening. EKG is notable for 1-mm ST depression in V3 and V4. Chest x-ray shows no acute intrathoracic pathology. ASSESSMENT AND PLAN: A 79-year-old female with past medical history of insulin - dependent diabetes, hypertension, hyperlipidemia, who presented to the emergency room with atypical chest pain in the setting of acute aspiration event and has of elevated troponin and dynamic ST changes with vague jaw pain, her presentation is most concerning for a NSTEMI. Also, found to have possible bronchitis versus aspiration pneumonitis with wheezing and mildly elevated lactic acidosis. 1. NSTEMI. HEART score is 4, EDISON is 3. Her troponin was initially mildly elevated, and increased in ER, along with dynamic ST changes. Cardiology was contacted who recommended anticoagulating patient. Her atypical jaw pain is improved at this time and if new or changing chest pain occurs will need to repeat EKG. - Lovenox treatment dose x1, can start heparin gtt after 12 hours (roughly 12PM) , nuclear stress vs cath depending on clinical course - She does have risk factors of hypertension and insulin-dependent diabetes. - Of note, she had a negative stress test 1 year ago. - Asa given, DAPT Brillinta vs Plavix per cardiology, Metoprolol started, statin on board, PRN nitrates 2. Bronchitis. Possible aspiration pneumonitis. The patient has described pill esophagitis and had an acute aspirative event which is more concerning for aspiration pneumonitis versus true aspiration pneumonia. She has no fevers, no evidence of consolidation with CTA. We will continue to monitor. For now, she has not need any oxygen and can take albuterol p.r.n. She is negative for the flu and possibly also has underlying upper respiratory infection as she has upper respiratory infection symptoms for 2 to 3 days. - Consider echocardiogram to r/o cardiac wheeze 3. Elevated Lactic Acid: Mild, will recheck in AM 4. Hypertension. Her home medication of losartan will be continued. 5. Hyperlipidemia. Her LDL is at goal and continue her home simvastatin. 6. DVT prophylaxis. The patient is on tx dose lovenox 7. Code status is full. 8. Diet is n.p.o. DISPOSITION: Stable to be admitted to [address] [place] [address] pending clinical changes. TIME SPENT: Sixty minutes was spent on the planning of this admission with over half of that spent directly at the bedside with the patient providing direct patient care. Plan of care is discussed with the patient and family who agree with admission and continued workup of her chest pain [id number]/[facility] #: [id number] KIAH
[2019-11-26 06:02] LABS: Troponin I 0.56 ng/mL (<0.03)
--- NOTE | 2019-11-26 06:27 | PN ---
Hospitalist Progress Note Date of Service: 11/26/19 Update in plan of care: As per H/P 79F PMH IDDM, HTN who presented with atypical CP after choking on a pill at home with likely aspiration pneumonitis, clinical course showing 1mm STD in V4-6 and elevated troponins c/w NSTEMI, also w/ persistent elevated lacitc pt rec'd Lovenox at midnight, will be due to start heparin gtt at noon unless cardiology evaluates first -NSTEMI: Cardiology to see pt in morning for definitive mgmt -Echo ordered -Elevated lactic-unclear source? Increase WOB in setting of aspiration event, will monitor and hold on fluids for now
[2019-11-26] MEDS ORDERED: Clopidogrel TAB* 300 MG PO ONE (06:29)
[2019-11-26] MEDS: Insulin LISPRO* 1 UNITS UNIT SUBCUT SCH ×3 (08:07→18:02)
[2019-11-26] MEDS ORDERED: Montelukast Sodium TAB* 10 MG PO SCH (09:00)
[2019-11-26] MEDS ORDERED: Atorvastatin* 20 MG TAB PO SCH (09:00)
[2019-11-26] MEDS ORDERED: Cyanocobalamin TAB* 500 MCG PO SCH (09:00)
[2019-11-26] MEDS ORDERED: Cholecalciferol TAB* 400 UNIT PO SCH (09:00)
[2019-11-26] MEDS ORDERED: Losartan TAB* 25 MG PO SCH (09:00)
--- NOTE | 2019-11-26 09:23 | HP ---
H&P (Free Text) History and Physical: Full note to be dictated. Pt with DM, HTN, Chol, FHx early CAD had pill dysphagia, choking, probable aspiration yesterday then SS CP radiating to R neck and lower jaw. Elevated trops, increasing still, peak now 0.56 ECG w/non specific ST changes. A/P 79 yo with ACS/NQMI with stress of choking, CAD risks as above. I discussed with enrollment manager, they recommend stress test, then determine if cath. Exercise myoview ordered for today, nuclear med called, they are ordering reagent.
[2019-11-26] MEDS ORDERED: Aminophylline IV* 25 MG/ML 10 ML VIAL ONE (10:23)
[2019-11-26] MEDS ORDERED: Regadenoson* 0.4 MG/5 ML SYRINGE ONE (10:23)
--- NOTE | 2019-11-26 11:06 | CONS ---
CC: Dr. Scott; Dr. Madelaine Reed CARDIOLOGY CONSULTATION NOTE: DATE OF CONSULT: 11/26/19 REASON FOR CONSULTATION: Chest pain and elevated troponin. CHIEF COMPLAINT: Substernal chest pain to the right jaw and choking. HISTORY OF PRESENT ILLNESS: Ms. Mendoza is a 79-year-old woman with diabetes , hypertension, dyslipidemia, who was in her usual state of health yesterday morning. She took her morning pills and then 1 caught in her throat and this led to a lot of trying to swallow it, choking, coughing, and following this, when she was sitting down to her computer, she then developed substernal chest pain that radiated to the jaw. She presented to the ER, had mild elevation in troponin that has progressed with her third being 0.56. ECG showed nonspecific changes, and CT of the chest was negative for pulmonary embolism but showed some inflammation in the airways. PAST MEDICAL HISTORY: The patient has a past medical history of: 1. Type 2 diabetes. 2. Hypertension. 3. Dyslipidemia. 4. Diverticulitis (September 2019). 5. Vitamin D deficiency. 6. Leg cramping at night. PAST SURGICAL HISTORY: Laminectomy over 20 years ago. MEDICATIONS: Outpatient medications include: 1. Insulin documented by the hospitalist. 2. Neurontin 100 to 300 mg q.h.s. for leg cramping. 3. Magnesium 500 mg daily. 4. Janumet XR b.i.d. 5. 100 mg series. 6. Montelukast 10 mg a day. 7. Losartan 100 mg a day. 8. Fish oil 1000 mg a day. 9. Zocor 40 mg a day. 10. Claritin 10 mg a day. 11. MultiVites. 12. Phenergan injections. 13. Tylenol p.r.n. 14. Albuterol p.r.n. 15. Lipitor 20 mg a day. 16. Tessalon p.r.n. 17. Vitamin D 400 mg a day. 18. Vitamin B12 500 mcg a day. Inpatient medications include: 1. Cozaar 100 mg a day. 2. Melatonin 3 mg p.r.n. sleep. 3. Lopressor 12.5 mg p.o. b.i.d. 4. Singulair 10 mg a day. 5. Nitroglycerin p.r.n. 6. Chloraseptic. ALLERGIES: Include AMOXICILLIN (rash). FAMILY HISTORY: Her mother had a history of lung cancer but of a heart attack at age 67. Her father very recently; she was estranged but she knows he had diabetes. Brother has a history of heart disease in his 70s. SOCIAL HISTORY: The patient is a retired business lawyer. Lives with her . Smoked minimally in her younger years for over 20 years. No history of alcohol abuse. REVIEW OF SYSTEMS: Negative for orthopnea, PND. Her appetite was fine, and prior to this episode, no recent exertional discomfort or jaw pain in the past. It was positive for pain in her legs at night, but not with walking. PHYSICAL EXAM: On exam, the patient is 5 feet 3 inches, weighs 163 pounds with a BMI of 29. Current vital signs: Blood pressure 129/65 with a pulse of 70. She is afebrile. Respiratory rate is 20. Oxygen saturation on room air is 95. Blood pressure on admission 170/90. General Appearance: Elderly woman, lying in bed at 30 degrees, appears comfortable, in no acute distress. Psychologically pleasant and cooperative. Neurologically, awake, alert, and oriented to person, place, and time. Grossly normal sensory and motor function in the upper and lower extremities in bed. Skin: Warm and dry without appreciable cyanosis or rashes. HEENT: Mucous membranes moist. Oral mucosa unremarkable. Tongue midline. Neck: Without increased JVP, 2+ carotid pulses bilaterally, free of bruits. Respirations: Had some anterior wheezing, cleared with coughing posteriorly. No rales or rhonchi and clear after coughing. Coronary: S1, S2, regular without murmurs or rubs. Abdomen: Active bowel sounds, soft, nontender. No hepatosplenomegaly, masses, or bruits. Lower extremities are thick but no pitting edema and 2+ dorsalis pedal pulses bilaterally. DIAGNOSTIC STUDIES/LAB DATA: A 12-lead ECG from 11/25/19 at 2100 showed normal sinus rhythm, mild [address] depression in the precordial leads V3 through V5, inferior leads unremarkable, prominent R-wave progression. EKGs reviewed serially overnight. At 1 in the morning, 1:08, the ST depression had resolved. EKG this morning at 6:22 showed normal sinus rhythm, 70 beats per minute, QRS axis, +30, normal AV and IV conduction times, ST segments are normal, prominent R-wave progression. Sodium 139, potassium 4.3, chloride 104, bicarb 25, BUN 18, creatinine 0.73, glucose 192. Lactic acid initially 2.4; #2, 3.0. Normal transaminases. Troponin #1, 0.09; #2, 0.37; #3, 0.56 (0534). Total cholesterol 141, triglycerides 202, LDL cholesterol 67, HDL cholesterol 34. White count 7.1, hematocrit 36, platelets 218. Influenza negative. D-dimer 2.93. Chest CTA negative for pulmonary embolism, positive for mild bronchial wall thickening, may represent underlying inflammation, infection versus chronic. IMPRESSION: In summary, Prudencjoseph Mendoza is a 79-year-old woman, who presented with anginal pain, substernal chest pain radiating to the right jaw on the stress of what sounds like pill aspiration with minimal ST depression that resolved rapidly. The issue is cath vs stress test and I discussed this with Interventional Cardiology, who recommended a followup stress test. I have ordered an exercise Myoview for today. In the interim, we will continue with aggressive risk factor modification of diabetes, hypertension, dyslipidemia. Consideration of switching over-the- counter fish oil to Vascepa as an outpatient if insurance coverage could be made. I am going to increase her metoprolol to attempt to get heart rate in the 60s. Echo has been ordered but not yet completed. Additional recommendations would be made following the results of her stress test. Thank you for allowing me to assist in this nice woman's care. ADDENDUM: ECHO SHOWED MILD RELATIVE HYPOKINESIS AT THE BASE OF THE INFERIOR WALL, MR AND TR. STRESS TEST SHOWED NORMAL PERFUSION REST/STRESS TROPININ LEVEL IMPROVING NOW 0.46. PROBABLE DEMAND/TYPE 2 ISCHEMIA. PLAN: MEDICAL MANAGEMENT ABOVE. FOLLOW UP WITH DR SCOTT THIS MONTH. [id number]/[facility] #: [id number] KIAH
--- NOTE | 2019-11-26 12:20 | ECHO ---
*[facility]* [place] [address] Fax #: [phone] Transthoracic Echocardiogram Patient: Stacy Mendoza : 1940 Study Date: 11/26/2019 Age: 79 Gender: F HR: 70 bpm Height: 63 in /160 cm BSA: 1.77 m^2 Weight: 162.7 lb /73.9 kg BMI: 28.9 kg/m^2 *College Admissions Counselor: * Erika Olsen *Referring Physician: * Padmini Peterson *Reading Physician: * Elaine Manzano MD Indications: Chest Pain, unspecified. History: Risk factors: Hypertension. Diabetes mellitus. Dyslipidemia. Conclusions Summary: - Left ventricle: Systolic function is reduced. The estimated ejection fraction is 45-50%. Hypokinesis of the basal-midinferior myocardium. Doppler parameters are consistent with abnormal left ventricular relaxation (grade 1 diastolic dysfunction). Doppler parameters are consistent with elevated ventricular end-diastolic filling pressure. - Mitral valve: There is mild to moderate regurgitation, directed posteriorly and toward the free wall. - Tricuspid valve: There is mild-moderate regurgitation directed toward the septum. - Pulmonary arteries: Systolic pressure is within the normal range, at least 35 mm Hg. - No prior echocardiogram available to compare. Study data: Transthoracic echocardiogram. Procedure: Transthoracic echocardiography was performed. Image quality was good. Complete 2D, spectral Doppler, and color flow Doppler. Location: Bedside. Patient status: Inpatient. Patient room number: 446-2. Rhythm: Normal sinus rhythm. Findings Left ventricle: The cavity size is normal. Wall thickness is normal. Systolic function is reduced. The estimated ejection fraction is 45-50%. Regional wall motion abnormalities: Hypokinesis of the basal-midinferior myocardium. Doppler parameters are consistent with abnormal left ventricular relaxation (grade 1 diastolic dysfunction). Doppler parameters are consistent with elevated ventricular end-diastolic filling pressure. Right ventricle: The cavity size is normal. Systolic function is normal. Left atrium: The atrium is normal in size. Right atrium: The atrium is normal in size. Atrial septum: No defect or patent foramen ovale is identified. Mitral valve: Appears calcified. The leaflets are mildly thickened. There is no evidence of stenosis. There is mild to moderate regurgitation, directed posteriorly and toward the free wall. Aortic valve: The valve is trileaflet. The leaflets are mildly calcified. There is no evidence of stenosis. There is no significant regurgitation. Tricuspid valve: The valve is structurally normal. There is no evidence of stenosis. There is mild-moderate regurgitation directed toward the septum. Pulmonic valve: The valve is structurally normal. There is mild regurgitation. Aorta: The aortic root appears normal. The aortic arch appears normal. Pericardium: There is no significant pericardial effusion. Pulmonary arteries: Systolic pressure is within the normal range, at least 35 mm Hg. Systemic veins: Inferior vena cava: There is (>= 50%) respiratory change in the IVC dimension. Pulmonary veins: Not well visualized. Measurements Left ventricle Value Ref Aortic valve Value Ref MALA, LAX 4.0 cm 3.8 - 5.2 Vidya diam, ED 1.9 cm ----- ESD, LAX (H) 3.9 cm 2.2 - 3.5 Peak v, S 1.45 m/sec ----- FS, LAX (L) 16 % 27 - 45 VTI, S 30.8 cm ----- PW, ED, LAX (H) 1.1 cm 0.6 - 0.9 Mean grad, S 5.0 mm Hg ----- FS (L) 16 % 27 - 45 Peak grad, S 8.0 mm Hg ----- Mid-wall FS 8 % MAINE, VTI 1.89 cm^2 ----- PW, ED (H) 1.1 cm 0.6 - 0.9 MAINE, Vmax 1.94 cm^2 ----- PW/ID, ED 0.24 E', lat vidya, TDI (L) 5.9 cm/sec >=10.0 Mitral valve Value Ref E/e', lat vidya, 13 Peak E 0.79 m/sec --- -- TDI Peak A 0.93 m/sec ----- E', med vidya, TDI (L) 5.3 cm/sec >=7.0 Decel time 187 ms ----- E/e', med vidya, 15 Peak grad, D 2.5 mm Hg --- -- TDI Peak E/A ratio 0.8 ----- E', avg, TDI 5.6 cm/sec ERO, PISA 0.06 cm^2 --- -- E/e', avg, TDI 14 <=14 MR vol, PISA 11 ml ----- MR fraction, PISA 16 % ----- LVOT Value Ref Diam, S 1.90 cm Pulmonic valve Value Ref Area 2.8 cm^2 Peak v, S 0.72 m/sec ----- Peak dilip, S 0.99 m/sec Peak grad, S 2.0 mm Hg ----- Mean grad, S 2 mm Hg FL v, ED 1.21 m/sec ----- SV 57 ml FL grad, ED 6 mm Hg ----- Ventricular septum Value Ref Tricuspid valve Value Ref IVS, ED (H) 1.1 cm 0.6 - 0.9 TR peak v (H) 2.81 m/sec <=2.8 Peak RV-RA grad, S 32 mm Hg ----- Right ventricle Value Ref Max TR dilip 2.72 m/sec ----- MALA, LAX 2.7 cm MALA minor ax, A4C 3.3 cm 1.9 - 3.5 Aortic root Value Ref mid Root diam 3.0 cm <4.0 Left atrium Value Ref Ascending aorta Value Ref AP dim, ES 3.70 cm 2.70 - AAo AP diam, S 2.9 cm ----- 3.80 ML dim, A4C 4.2 cm Aortic arch Value Ref SI dim, A4C 4.7 cm Arch diam 1.8 cm ----- Vol/bsa, ES, 1-p 27 ml/m^2 11 - 40 A4C Decending aorta Value Ref Vol/bsa, ES, A/L 30 ml/m^2 16 - 34 Arline peak dilip 0.7 m/sec ----- Right atrium Value Ref Inferior vena cava Value Ref SI dim, ES 3.9 cm 3.4 - 5.3 Diam 2.0 cm ----- ML dim, ES, A4C 3.0 cm 2.6 - 4.4 SI dim, ES, A4C 3.9 cm 3.4 - 5.3 SI dim/bsa, ES, 2.2 cm/m^2 1.9 - 3.1 A4C Legend: (L) and (H) vivian values outside specified reference range. Prepared and electronically signed by Elaine Manzano MD 11/26/2019 12:19
[2019-11-26 13:24] LABS: Troponin I 0.46 ng/mL (<0.03)
[2019-11-26] MEDS ORDERED: Insulin GLARGINE(*) 1 UNITS UNIT SUBCUT SCH (17:00)
[2019-11-26 17:30] VITALS: BP 142/67
--- NOTE | 2019-11-27 09:17 | DS ---
CC: Dr. Madelaine Reed; Dr. Scott * DISCHARGE SUMMARY: DATE OF ADMISSION: 11/26/19 DATE OF DISCHARGE: 11/26/19 PRIMARY CARE PROVIDER: Dr. Madelaine Reed. PRODUCT SAFETY AND STANDARDS ENGINEER: Dr. Scott. DISCHARGE DIAGNOSES: 1. Episode of aspiration. 2. Troponin elevation secondary to demand ischemia. 3. Lactic acidosis secondary to metformin. SECONDARY DIAGNOSES: 1. Type 2 diabetes. 2. Hypertension. 3. Hyperlipidemia. 4. History of diverticulitis. MEDICATION LIST: 1. Aspirin 81 mg p.o. daily. 2. Fish oil 1000 mg p.o. daily. 3. Multivitamins 1 tablet p.o. daily. 4. Vitamin B12 500 mcg p.o. daily. 5. Vitamin D 400 units p.o. daily. 6. Janumet XR one tablet p.o. b.i.d. to be resumed on 11/27/19 after 10 p.m. 7. Simvastatin. 8. Singulair 10 mg p.o. daily. 9. Losartan 100 mg p.o. daily. 10. Lantus 55 units subcutaneously daily. New medications: 1. Nitroglycerin 0.4 mg sublingual q.5 minutes p.r.n. chest pain, maximum 3 doses. 2. Metoprolol tartrate 12.5 mg p.o. q.12 hours. 3. Benzonatate 100 mg p.o. t.i.d. as needed for cough. HOSPITAL COURSE: Mrs. Mendoza is a 79-year-old female with a past medical history stated above who presented to the emergency room with complaints of chest pain, cough, wheezing that started after she choked on her pills. For more details about her presentation, I refer you to her history and physical. The patient had serial troponins that peaked at 0.56, and she was seen in consultation by Cardiology (Dr. Manzano) who recommended a stress test. The patient had an exercise Myoview stress test that showed no evidence for stress- induced myocardial ischemia or presence of an infarct. There was normal left ventricular wall motion and ejection fraction. The assessment was of a low risk stress test based on nuclear assessment. The patient had a transthoracic echocardiogram that showed ejection fraction 45% to 50% with hypokinesis of the basal mid inferior myocardium, [id number] MR, [id number] TR. The impression is the patient likely had demand ischemia in the setting of her episode of choking and aspiration and recommendation was for medical management with aspirin, beta-marquise, statin, and follow up with Dr. Scott in 1 to 2 weeks. Regarding the patient's episode of aspiration, she states that she usually has no trouble swallowing, but at that time, she had tried to swallow 3 pills at the same time. She was educated to take 1 pill at a time and swallow them with water. At the time of discharge, the patient stated that her chest and jaw pain , dyspnea, and wheezing were resolved and she felt well and opted to go home. Initially, the patient was described as having wheezing but during my physical examination, she had minimal wheezing on the right upper lobe that cleared with coughing. We discussed the possibility of adding steroids to help with aspiration pneumonitis but her symptoms were improved and after reviewing the risks and benefits especially the chance of uncontrolled hyperglycemia, decision was made not to start any steroids. The patient had a CTA of the chest that showed no consolidation, effusion, edema, no pulmonary embolus, but there was mild bronchial thickening that may represent underlying inflammation. The patient does not appear to have bacterial infection at this time, so antibiotics were not added but she understands that she may be a risk for aspiration pneumonia and she was educated on signs and symptoms that would prompt her return to the emergency department. The patient is medically stable to be discharged home today to follow up with Dr. Reed and Dr. Scott as outpatient. PHYSICAL EXAMINATION: Vital Signs: Temperature 97.1, heart rate is 71, respiratory rate is 20, oxygen saturation 95% on room air, blood pressure is 142 /67. General: The patient is a pleasant elderly lady, sitting up in bed, in no acute distress. HEENT: Pupils are equal. Moist mucous membranes. CVS: Normal S1, S2. Regular rate and rhythm. Chest: Breath sounds present bilaterally with faint wheeze in the right upper lobe that cleared with cough. No other added sounds. Abdomen is soft. Bowel sounds are present. Extremities: No edema. Neuro: She is alert and oriented x2. Able to move all 4 extremities. DIET: Heart-healthy, consistent carb diet. ACTIVITIES: As tolerated. DISPOSITION: To home. STATUS WHILE IN THE HOSPITAL: Observation. CONDITION ON DISCHARGE: Fair. Please keep in mind that this is a summarized version of this patient's hospital stay. If you need more information, please feel free to call me at or please obtain the full medical records. TIME SPENT: Approximately 45 minutes was spent to complete this discharge. [id number]/[facility] #: [id number] KIAH
== END 2019-11-26 19:05 | disposition home or self-care (01) | DRG 311 ==
LOC: ED 21:08 → MEDTELE 11-26 00:33 → OBSVTOIN 11-26 00:33
PROVIDERS: ADMIT Internal Medicine; ATTEND Internal Medicine
DX: I24.8 Other forms of acute ischemic heart disease (principal); E87.2 Acidosis; E11.9 Type 2 diabetes mellitus without complications; I10 Essential (primary) hypertension; E78.5 Hyperlipidemia, unspecified; E78.00 Pure hypercholesterolemia, unspecified; T17.920A Food in respiratory tract, part unspecified causing asphyxiation, initial encounter; I08.1 Rheumatic disorders of both mitral and tricuspid valves; T38.3X5A Adverse effect of insulin and oral hypoglycemic [antidiabetic] drugs, initial encounter; E55.9 Vitamin D deficiency, unspecified; Z88.0 Allergy status to penicillin; Z87.891 Personal history of nicotine dependence; Z28.21 Immunization not carried out because of patient refusal; Y92.9 Unspecified place or not applicable; Z79.82 Long term (current) use of aspirin; Z79.4 Long term (current) use of insulin; Z79.899 Other long term (current) drug therapy
CPT/HCPCS: 36415; 71046; 71275; 78452; 80053; 80061; 83036; 83605; 83880; 84484; 85025; 85379; 86140; 93005; 93017; 93306; 99285; A9270-GY; A9502; J0280; J1650; J2785; Q9967